=== PATIENT | male | born 1995 | race American Indian/Alaskan Native ===

== ENCOUNTER 2017-05-06 18:17 | Emergency (ER) | payer SELFPAY ==
[2017-05-06 19:35] VITALS: BP 128/61
== END 2017-05-07 00:35 | disposition left against medical advice (07) ==
LOC: ED 18:17
DX: R19.09 Other intra-abdominal and pelvic swelling, mass and lump (principal); Z53.21 Procedure and treatment not carried out due to patient leaving prior to being seen by health care provider